=== PATIENT | male | born 1945 | race Caucasian/White ===

== ENCOUNTER → 2019-08-16 | Outpatient (CLI) | payer OTHER ==
[~2019-08-16] MED LIST: APAP650 PO; ASPIR 8181 MG PO; CARDURA2 MG PO; FLEXERIL PO; MEDROLDOSEPACK PO; MEN'S 50+ DAIL1 EACH PO; MIRALAX17 GM PO; NORCO 7.5-3251 EACH PO; PRINIVIL40 MG PO; PROAIR HFA8.5 GM INH; PROMETHAZINE D480 ML PO; PROSCAR 5MG TABL5 M1 PO; SENNA8.6 MG PO; TESSALON PERLE100 MG PO; ZOCOR40 MG PO; ZPAK PO; [UNRECOGNIZED DRUG - OTHER] PO
--- NOTE | 2019-08-16 16:05 | CARDNUC ---
[place] [address] CARDIAC NUCLEAR IMAGING REPORT Name: JUAN BOURGEOIS SR Room: [facility]#: [id number] Admission: 08/16/19 Attend Phys: Samantha. MICKIE Henderson Discharge: Date of : 45 Date of Service: 08/16/19 1605 Report #: [id number] THIS REPORT FOR: //name// APPROVED REPORT Study performed: 08/16/2019 14:33:35 Exam: Nuclear Stress Test Indication: Dyspnea Patient Location: Out-Patient Stress Tech: Stacie Aguilar Stress Nurse: Aleta Marte RN Ht: 5 ft 2 in Wt: 249 lbs BSA: 2.10 m2 BMI: 45.53 Medical History Medical History: HTN, Hyperlipidemia Medications: SIMVASTATIN, LISINOPRIL, AMLODIPINE, ASA-81 Allergies: No known drug allergies Cardiac Risk Factors: Age, HTN, Hyperlipidemia, Smoking, FHX of CAD Exercise History: Sedentary Stress Test Details Stress Test: Pharmacologic stress testing performed using 0.4 mg of regadenoson per 5 mL given IV over 10 seconds. Reason for pharmacologic stress test: physical limitation. HR Resting HR: 68 bpm Max Heart Rate (APMHR): 146 bpm Max HR Achieved: 85 bpm Target HR (85% APMHR): 124 bpm % of APMHR: 58 Recovery HR: 78 bpm BP Resting BP: 121/72 mmHg Max BP: 93/59 mmHg ECG Resting ECG: Sinus Rhythm Stress ECG: Sinus Rhythm ST Change: None Arrhythmia: None Recovery ECG: [place] [address] CARDIAC NUCLEAR IMAGING REPORT Name: JUAN BOURGEOIS SR Room: [facility]#: [id number] Admission: 08/16/19 Attend Phys: Samantha. CORADO Castrosalba Discharge: Date of : 45 Date of Service: 08/16/19 1605 Report #: [id number] Change: None Recovery Arrhythmia: None Clinical Reason for Termination: Completed protocol Exercise duration: 0 min sec Exercise capacity: 1 METs The patient tolerated Lexiscan infusion without cardiac symptoms. Nurse Comments PT GAIT TOO UNSTEADY TO WALK ON TREADMILL Stress ECG Conclusion The baseline 12-lead EKG showed sinus rhythm without significant ST or T wave abnormality. EKGs obtained during and post Lexiscan infusion show sinus rhythm with no suggestive ST or T wave changes when compared baseline. No stress-induced arrhythmias. NM EXAM: Myocardial Perfusion REST/STRESS Imaging Protocol: Rest Tc-99m/Stress Tc-99m 1 day Resting Data Rest SPECT myocardial perfusion imaging was performed in supine position 30 minutes following the intravenous injection of 11.0 mCi of Tc-99m Sestamibi. Time of rest injection: 1315 The images were gated to evaluate regional wall motion and calculate left ventricular ejection fraction. Administration Route: IV Administration Site: Right AC Pharmacologic Stress Pharmacologic stress test was performed by injecting Regadenoson 0.4 mg IV push followed by the intravenous injection of 34.2 mCi of Tc-99m Sestamibi. Time of stress injection: 1435 Administration Route: IV Administration Site: Right AC Heart Rate at time of stress injection: 85 bpm. Gated Stress SPECT was performed 40 minutes after stress injection. The images were gated to evaluate regional wall motion and calculate [place] [address] CARDIAC NUCLEAR IMAGING REPORT Name: JUAN BOURGEOIS SR Room: [facility]#: [id number] Admission: 08/16/19 Attend Phys: Samantha. CORADO Castrosalba Discharge: Date of : 45 Date of Service: 08/16/19 1605 Report #: [id number] Prone imaging was performed. Study Quality Study: Good Artifact: No artifact Study Data At rest, the left ventricular ejection fraction was 87%.. Post stress, the left ventricular ejection was 75%.. TID = 1.38. Perfusion Perfusion images obtained at rest and post Lexiscan stress. 4 uptake of the radioisotope throughout the myocardium without defect. Wall Motion Normal left ventricular wall motion. Nuclear Conclusion ECG Findings: negative for ischemia Clinical Findings: negative for ischemia Nuclear Findings: negative for ischemia Exercise Capacity: not assessed Left Ventricular Function: normal Risk Study: low Myocardial perfusion images show no defect to suggest infarct or ischemia. Left ventricular systolic function appears normal on gated studies. This is a low risk study. <Conclusion> The baseline 12-lead EKG showed sinus rhythm without significant ST or T wave abnormality. EKGs obtained during and post Lexiscan infusion show sinus rhythm with no suggestive ST or T wave changes when compared baseline. No stress-induced arrhythmias. <ELECTRONICALLY SIGNED> By: Anjum Nicholas MD, [facility] 08/16/19 1605 1605 1605 Anjum Nicholas MD, FACC /INF
== END ==
LOC: M.NUC 12:57
DX: R06.02 Shortness of breath (principal); I10 Essential (primary) hypertension; E78.5 Hyperlipidemia, unspecified

== ENCOUNTER 2020-06-15 14:13 | Emergency (ER) | payer OTHER ==
[~2020-06-15] VITALS: Ht 188 cm; Wt 113.4 kg
[2020-06-15] MEDS ORDERED: KEFLEX500 M1 PO (14:25)
[2020-06-15 14:28] VITALS: BP 154/86
[2020-06-15] MEDS ORDERED: ALLOPURINOL 10100 M3 PO (14:32)
[2020-06-15] MEDS ORDERED: MELATONIN5 MG PO (14:32)
[2020-06-15] MEDS ORDERED: NORVASC5 M1 PO (14:32)
[2020-06-15] MEDS ORDERED: TAMSULOSIN HCL0.4 MG PO (14:32)
[2020-06-15] MEDS ORDERED: PROSCAR 5MG TABL5 M1 PO (14:32)
[2020-06-15] MEDS ORDERED: METFORMIN HCL500 M3 PO (14:33)
== END 2020-06-15 14:38 | disposition home or self-care (01) ==
LOC: M.ERS 14:13
DX: L03.116 Cellulitis of left lower limb (principal); I10 Essential (primary) hypertension; Z96.641 Presence of right artificial hip joint